=== PATIENT | female | born 1995 | race Hispanic/Latino ===

== ENCOUNTER → 2024-08-05 | Day surgery (SDC) | payer OTHER ==
[~2024-08-05] MED LIST: FENTANYL CITRATE/PF 100MCG/2 ML INJ ONE; LIDOCAINE HCL 2% LOCAL INJ 5 ML SDV VIAL INJ ONE; METOCLOPRAMIDE HCL 10 MG/2ML VIAL ONE; ONDANSETRON HCL INJ 2MG/ML 2ML 2 MG/ML VIAL ONE; PROBIOTIC1 EAC1 PO; PROPOFOL IV EMULSION 10 MG/ML 20 ML VIAL ONE
[2024-08-05] MEDS: LACTATED RINGER'S 1,000 ML ONE (05:53)
[2024-08-05 07:30] VITALS: TEMP 98.1
[2024-08-05 08:00] VITALS: BP 105/52; PULSE 79; RESP 16; O2SAT 96
== END | disposition home or self-care (01) ==
LOC: OR 05:30
PROVIDERS: ATTEND Internal Medicine Gastroenterology
DX: K29.50 Unspecified chronic gastritis without bleeding (principal); K20.90 Esophagitis, unspecified without bleeding; K59.09 Other constipation; R19.5 Other fecal abnormalities; K76.0 Fatty (change of) liver, not elsewhere classified; D64.9 Anemia, unspecified; K60.30 Anal fistula, unspecified; N82.8 Other female genital tract fistulae; N39.0 Urinary tract infection, site not specified; Z68.24 Body mass index [BMI] 24.0-24.9, adult; Z86.19 Personal history of other infectious and parasitic diseases; Z80.0 Family history of malignant neoplasm of digestive organs
CPT/HCPCS: 43239; 81025; J2003; J2405; J2470; J2704; J2765; J3010; J7121